=== PATIENT | female | born 1985 | race Caucasian/White ===

== ENCOUNTER → 2016-08-06 | Day surgery (SDC) | payer OTHER ==
[~2016-08-06] VITALS: Ht 172.7 cm; Wt 90.7 kg
[~2016-08-06] MED LIST: ACET50TA PO; ACETAMINOPHEN 650 MG SUPP As Ordered ONE; ACETAMINOPHEN 650 MG SUPP PR ONE; BUPIVACAINE HCL 0.25% 10 ML VIAL As Ordered ONE; BUPIVACAINE HCL 0.5% 10 ML VIAL As Ordered ONE; FISH1000 PO; GLYCOPYRROLATE INJ 0.2 MG/ML 2 ML VIAL As Ordered ONE; HYDROmorphone HCL 1 MG/ML SYRINGE (J1170) IV PRN; IBUP80TA PO; JOLETAB PO; LIDOCAINE 2% INJ 100 MG/5 ML SDV (FOR ANES.) As Ordered ONE; LR 1,000 ML IV SCH; LUNE1TAB5 PO; LYRI100C10 PO; MIDAZOLAM INJ 2 MG/2 ML VIAL (J2250) As Ordered ONE; NAPR500T2 PO; NEOSTIGMINE 1MG/ML 5 ML SYRINGE (J2710) As Ordered ONE; ONDANSETRON 4MG/2ML VIAL (J2405) As Ordered ONE; ONDANSETRON 4MG/2ML VIAL (J2405) IV PRN; PERCOCET 5MG/325MG TAB PO PRN; PROPOFOL 200 MG/20 ML VIAL As Ordered ONE; PROZ40CA PO; ROCURONIUM BROMIDE 50 MG/5 ML VIAL As Ordered ONE; VENL37TA PO; VITA100054 PO; dexameTHASONE 4 MG/ML 1ML VIAL (J1100) As Ordered ONE; ePHEDrine SULFATE 25 MG/5 ML(5MG/ML) SYRINGE As Ordered ONE; fentaNYL 100 MCG/2 ML INJECTION (J3010) As Ordered ONE
[2016-08-06 09:29] LABS: MEAN CORPUSCULAR HEMOGLOBIN 30.1 pg (27.0-33.0); MEAN CORPUSCULAR HGB CONC 33.7 g/dl (32.0-36.5); MEAN CORPUSCULAR VOLUME 89.3 fl (80.0-96.0); WHITE BLOOD COUNT 4.9 K/mm3 (4.0-10.0)
[2016-08-06 09:35] LABS: ANION GAP 7 MEQ/L (8-16); BLOOD UREA NITROGEN 12 MG/DL (7-18); CALCIUM LEVEL 8.6 MG/DL (8.5-10.1); CARBON DIOXIDE LEVEL 26 MEQ/L (21-32); CHLORIDE LEVEL 107 MEQ/L (98-107); CREATININE FOR GFR 1.02 MG/DL (0.55-1.02); GLOMERULAR FILTRATION RATE > 60.0 (>60); GLUCOSE, FASTING 87 MG/DL (70-105); HCG, SERUM QUANTITATIVE < 1.0 MIU/ML; POTASSIUM SERUM 4.1 MEQ/L (3.5-5.1); SODIUM LEVEL 140 MEQ/L (136-145)
--- NOTE | 2016-08-06 11:46 | REP ---
Clinical: Locate Filshie clip. Technique: Single portable intraoperative supine view of the abdomen. Findings: A single clip is identified in the left hemipelvis. Overlying surgical hardware noted. Impression: Intraoperative examination demonstrating single Filshie clip in the left hemipelvis. Signed by Marcelino Buckner MD 08/06/2016 11:37 A
[2016-08-06] MEDS: fentaNYL 100 MCG/2 ML INJECTION (J3010) IV PRN ×4 (12:05→12:20)
[2016-08-06 13:35] VITALS: BP 130/78
--- NOTE | 2016-08-10 11:47 | RO ---
DATE OF PROCEDURE: 08/06/2016 PREOPERATIVE DIAGNOSIS: Bilateral chronic pelvic pain, abnormal uterine bleeding. POSTOPERATIVE DIAGNOSIS: Abnormal uterine bleeding, chronic pelvic pain. OPERATION PROPOSED: Operative laparoscopy, bilateral salpingectomy, hysteroscopy, dilation and curettage. OPERATION PERFORMED: Operative laparoscopy, bilateral salpingectomy, removal of occult Filshie clip, hysteroscopy, dilation and curettage. SURGEON: Dr. Roland Thorpe TECHNICAL DOCUMENTATION SPECIALIST: Dr. Link ANESTHESIA: General plus local anesthetic for intraperitoneal procedures. ESTIMATED BLOOD LOSS: 20 mL This lady has had chronic pelvic pain since her tubal ligation and despite investigations, no cause was found. The patient also had abnormal uterine bleeding in which she had heavy periods using excess of 20 tampons and pad per period, requiring her to stay home. DESCRIPTION OF PROCEDURE: Under adequate anesthesia, prepped and draped in the lithotomy position, Jean catheter in the bladder draining clear urine, acetaminophen suppository 1300 mg per rectum. Time-out was performed. Weighted speculum in vagina, single-tooth tenaculum on the anterior lip of the cervix. She had some degree of cervical uterine descent, and she had some degree of cervical stenosis. We sounded the uterus to a depth of 6 cm, placed a uterine sound into the cavity. Then, reprepping and draping, subumbilical incision was made. Direct entry into the abdomen. No evidence of perforation, hemorrhage or bleeding. 3 liters of CO2 warmed were placed in the abdominal cavity. On examination, the upper abdomen was normal. Liver edge was smooth. Gallbladder was normal. Uterus was midline, retroverted, retroflexed. The right ovary appeared to be normal. Left ovary appeared to be normal. We noted that there was a Filshie clip on the left tube, but we could not demonstrate a Filshie clip on the right tube. A 5 mm port was placed on the right side and an 8 mm port was placed on the left side. We identified the structures as normal. The cul-de-sac appeared to be clear. We then went ahead and removed the left tube and Filshie clip with the Harmonic scalpel securing hemostasis, identifying the ureter. The tube and the clip were removed through the 8 mm port. Once that was done, we turned our attention to the right side and again identified the ovary being normal, could not find the clip. We did a salpingectomy on the right side, removing the tube, using the Harmonic scalpel and that was removed and sent off to pathology under separate cover. Having not been able to identify a clip on the right tube, we then filled the abdomen with normal saline and floated the organs in order to see if we could identify a tube attached to either omentum or some other structure. After 20 minutes of evaluating, we could not identify a tube anywhere. We then had a C-arm placed on the patient, took an x-ray and, in fact, found the occult Filshie clip hiding in a defect in the cul-de-sac on the left side under the arch of the uterosacral. Once we were able to identify where the location of the clip was, we then put in a grasper and easily pulled out the clip, which was still compressed and removed it through the 8 mm port. The defect seemed to be just lodged where the Filshie clip was, but there was no sequelae to that area. We then irrigated, left 250 mL of normal saline in the abdomen, deflated to 4 mm of pressure, removed the 5 mm port, removed the 8 mm port, removed the camera port. . We then approximated the incisional sites, Marcaine 0.25% 3 mL to each site and skin tapes were applied. We then went below, removed the dilator, dilated the cervix up to an appropriate level that we could actually get a hysteroscope in. Panoramic review revealed moderate amount of tissue throughout the cavity with some erratic and irregular spaces. Os on the right was normal. Os on the left was normal. We then took samples under direct vision and sent them off under separate cover identified and timed the lining of the endometrium. This lady's last menstrual period (LMP) was 07/22/2016. With that done, we had used a total of 150 mL of fluid in, 150 mL out, all instruments removed. The instrument and pad counts were correct, the Jean catheter was removed and the patient was sent to recovery in good condition.
== END | disposition home or self-care (01) ==
LOC: M SDC 08:29
PROVIDERS: ATTEND Obstetrics & Gynecology
DX: N93.9 Abnormal uterine and vaginal bleeding, unspecified (principal); R10.2 Pelvic and perineal pain; G47.9 Sleep disorder, unspecified; M54.9 Dorsalgia, unspecified; F41.9 Anxiety disorder, unspecified; F32.9 Major depressive disorder, single episode, unspecified; Z88.0 Allergy status to penicillin; Z79.899 Other long term (current) drug therapy; Z98.51 Tubal ligation status
CPT/HCPCS: 36415; 58558; 58661; 74000; 80048; 84702; 85027; 88302; 88305; J1100; J2250; J2405; J2710; J3010

== ENCOUNTER 2017-01-30 08:19 | Emergency (ER) | payer OTHER ==
[~2017-01-30 08:19] MED LIST changes: -ACETAMINOPHEN 650 MG SUPP As Ordered ONE; -ACETAMINOPHEN 650 MG SUPP PR ONE; -BUPIVACAINE HCL 0.25% 10 ML VIAL As Ordered ONE; -BUPIVACAINE HCL 0.5% 10 ML VIAL As Ordered ONE; -GLYCOPYRROLATE INJ 0.2 MG/ML 2 ML VIAL As Ordered ONE; -HYDROmorphone HCL 1 MG/ML SYRINGE (J1170) IV PRN; -LIDOCAINE 2% INJ 100 MG/5 ML SDV (FOR ANES.) As Ordered ONE; -LR 1,000 ML IV SCH; -LYRI100C10 PO; -MIDAZOLAM INJ 2 MG/2 ML VIAL (J2250) As Ordered ONE; -NAPR500T2 PO; +NAPR500T3 PO; -NEOSTIGMINE 1MG/ML 5 ML SYRINGE (J2710) As Ordered ONE; -ONDANSETRON 4MG/2ML VIAL (J2405) As Ordered ONE; -ONDANSETRON 4MG/2ML VIAL (J2405) IV PRN; -PERCOCET 5MG/325MG TAB PO PRN; +PREG100CA PO; -PROPOFOL 200 MG/20 ML VIAL As Ordered ONE; -ROCURONIUM BROMIDE 50 MG/5 ML VIAL As Ordered ONE; -dexameTHASONE 4 MG/ML 1ML VIAL (J1100) As Ordered ONE; -ePHEDrine SULFATE 25 MG/5 ML(5MG/ML) SYRINGE As Ordered ONE; -fentaNYL 100 MCG/2 ML INJECTION (J3010) As Ordered ONE
[2017-01-30] MEDS ORDERED: FLUO20CA19 PO (08:42)
[2017-01-30] MEDS ORDERED: methylPREDNISolone INJ 125 MG/2 ML VIAL (J2930) IM ONE (09:00)
[2017-01-30] MEDS ORDERED: IPRATROPIUM 0.5MG/ALBUTEROL 2.5MG INH SOL UD 3ML (DUONEB)(J7620) NEB ONE (09:00)
--- NOTE | 2017-01-30 09:46 | REP ---
CHEST PA AND LATERAL: 01/30/2017 CLINICAL HISTORY: Wheezing and cough. FINDINGS: No prior studies. The lungs are well inflated. Some peribronchial thickening and streaky densities infrahilar regions suggesting some reactive airway disease or bronchitis. No dense consolidation pleural effusion or mass. No pulmonary nodules, mediastinal or hilar mass, cardiomegaly or edema. The aorta and airway intact. Bony thorax shows no focal lesion. There is no free air under the diaphragm. IMPRESSION: 1. Some perihilar changes of reactive airway disease or bronchitis. No dense consolidation, effusion, cardiomegaly or edema. Signed by Spenser Coughlin MD 01/30/2017 03:43 P
[2017-01-30 09:54] VITALS: BP 130/77
[2017-01-30] MEDS ORDERED: SING10TA32 PO (10:01)
[2017-01-30] MEDS ORDERED: PRED20TA PO (10:01)
[2017-01-30] MEDS ORDERED: ALBU17IN INH (10:01)
== END 2017-01-30 10:06 | disposition home or self-care (01) ==
LOC: M ED 08:19
DX: J45.901 Unspecified asthma with (acute) exacerbation (principal); J06.9 Acute upper respiratory infection, unspecified
CPT/HCPCS: 71020; 94640; 96372; 99282; J2930

== ENCOUNTER 2017-07-06 11:39 | Emergency (ER) | payer OTHER | END 2017-07-06 12:40 | disposition home or self-care (01) | LOC: M ED 11:39 | DX: J06.9 Acute upper respiratory infection, unspecified (principal); J45.909 Unspecified asthma, uncomplicated; F33.9 Major depressive disorder, recurrent, unspecified; Z79.899 Other long term (current) drug therapy; Z98.890 Other specified postprocedural states; Z88.0 Allergy status to penicillin | CPT/HCPCS: 99282 ==

== ENCOUNTER 2017-12-02 11:10 | Emergency (ER) | payer OTHER ==
[2017-12-02 13:02] LABS: AMORPHOUS SEDIMENT RFX SMALL (NEGATIVE); KETONE, URINE AUTO RFX NEGATIVE (NEGATIVE); LEUKOCYTE ESTERASE UR AUTO RFX NEGATIVE (NEGATIVE); NITRITE, URINE AUTO RFX NEGATIVE (NEGATIVE); RBC, URINE AUTO RFX 1 /HPF (0-3); SPECIFIC GRAVITY UR AUTO RFX 1.014 (1.002-1.035); SQUAM EPITHELIAL CELL UR AURFX 1 /HPF (0-6); WBC, URINE AUTO RFX 1 /HPF (0-3)
[2017-12-02 13:31] LABS: BASO # 0.1 10^3/uL (0.0-0.2); BASO % 0.8 % (0.0-1.0); EOS % 0.2 % (0.0-3.0); HEMATOCRIT 43.6 % (36.0-47.0); HEMOGLOBIN 14.6 g/dl (12.0-15.5); IMMATURE GRANULOCYTE % 0.3 % (0-3.0); LYMPH # 1.9 10^3/uL (1.5-4.5); LYMPH % 30.5 % (24.0-44.0); MEAN CORPUSCULAR HGB CONC 33.5 g/dl (32.0-36.5); MEAN CORPUSCULAR VOLUME 89.5 fl (80.0-96.0); MONO # 0.6 10^3/uL (0.0-0.8); MONO % 9.2 % (0.0-5.0); NEUTROPHILS # 3.7 10^3/uL (1.8-7.7); PLATELET COUNT, AUTOMATED 236 10^3/uL (150-450); RED BLOOD COUNT 4.87 10^6/uL (4.00-5.40); RED CELL DISTRIBUTION WIDTH 12.7 % (11.5-14.5); WHITE BLOOD COUNT 6.3 10^3/uL (4.0-10.0)
[2017-12-02 13:56] LABS: ANION GAP 7 MEQ/L (8-16); BLOOD UREA NITROGEN 10 MG/DL (7-18); CALCIUM LEVEL 8.7 MG/DL (8.5-10.1); CARBON DIOXIDE LEVEL 23 MEQ/L (21-32); CHLORIDE LEVEL 114 MEQ/L (98-107); CREATININE FOR GFR 1.11 MG/DL (0.55-1.30); GLOMERULAR FILTRATION RATE > 60.0 (>60); GLUCOSE, FASTING 94 MG/DL (70-100); MAGNESIUM LEVEL 2.1 MG/DL (1.8-2.4); POTASSIUM SERUM 4.1 MEQ/L (3.5-5.1); SODIUM LEVEL 144 MEQ/L (136-145)
== END 2017-12-02 14:38 | disposition home or self-care (01) ==
LOC: M ED 11:10
DX: R20.9 Unspecified disturbances of skin sensation (principal); R53.1 Weakness; J45.909 Unspecified asthma, uncomplicated; M79.7 Fibromyalgia; F50.81 Binge eating disorder; F17.200 Nicotine dependence, unspecified, uncomplicated; Z88.0 Allergy status to penicillin; Z79.899 Other long term (current) drug therapy
CPT/HCPCS: 70450

== ENCOUNTER → 2017-12-17 | Outpatient (REF) | payer OTHER ==
[2017-12-17 18:42] LABS: APPEARANCE, URINE HAZY (CLEAR); BACTERIA, URINE AUTO 1+ (NEGATIVE); BILIRUBIN, URINE AUTO NEGATIVE (NEGATIVE); BLOOD, URINE BLOOD NEGATIVE (NEGATIVE); CALCIUM OXALATE CRYSTALS MODERATE; COLOR, URINE YELLOW (YELLOW); GLUCOSE, URINE (UA) AUTO NEGATIVE (NEGATIVE); KETONE, URINE AUTO TRACE mg/dL (NEGATIVE); LEUKOCYTE ESTERASE, URINE AUTO 1+ (NEGATIVE); MUCUS, URINE SMALL (NEGATIVE); NITRITE, URINE AUTO NEGATIVE (NEGATIVE); PROTEIN, URINE AUTO NEGATIVE (NEGATIVE); RBC, URINE AUTO 1 /HPF (0-3); SQUAMOUS EPITHELIAL CELL UR AU 1 /HPF (0-6); WBC, URINE AUTO 2 /HPF (0-3)
== END ==
LOC: M SMT 17:07
DX: R32 Unspecified urinary incontinence (principal)

== ENCOUNTER 2017-12-29 15:52 | Emergency (ER) | payer OTHER | END 2017-12-29 17:00 | disposition home or self-care (01) | LOC: M ED 15:52 | DX: G43.809 Other migraine, not intractable, without status migrainosus (principal); M79.7 Fibromyalgia; N32.81 Overactive bladder; F50.81 Binge eating disorder; J45.909 Unspecified asthma, uncomplicated; M54.9 Dorsalgia, unspecified; F41.9 Anxiety disorder, unspecified; F32.9 Major depressive disorder, single episode, unspecified; Z72.0 Tobacco use; Z79.899 Other long term (current) drug therapy; Z88.0 Allergy status to penicillin | CPT/HCPCS: 99282 ==

== ENCOUNTER → 2018-05-25 | Outpatient (CLI) | payer OTHER ==
[~2018-05-25] MED LIST changes: +ALBU17IN INH; +ALIG4CAP PO; +CETI10CH PO; +DEPLCAP PO; +FLUO20CA19 PO; +LAMO100T; +NAPR-885 PO; -NAPR500T3 PO; +OSEL75CA PO; +OXYB5TAB10 PO; +PRED20TA PO; +SING10TA32 PO; +TOPI25TA10; +VENL75CA47; +ZOFR4TAB14 PO
--- NOTE | 2018-05-25 18:13 | REP ---
MAXILLOFACIAL CT WITHOUT CONTRAST: HISTORY: Pansinusitis. Mucosal thickening is present in the maxillary, right ethmoid and right frontal sinuses. There is complete opacification of the right maxillary and frontal sinuses. Minimal mucosal thickening is present in the right ethmoid and left maxillary sinuses. The remaining sinuses are clear. Mucosal thickening involves the right ostiomeatal unit. The left ostiomeatal unit is patent. The middle and inferior nasal turbinates are partially paradoxical. There is minimal deviation of the nasal septum to the right superiorly and to the left inferiorly. A spur is present arising from the left side of the nasal septum. The spur abuts the left inferior nasal turbinate. The cribriform plate, medial davison of the orbits and optic canals are intact. The carotid canals form a segment of the posterolateral davison of the sphenoid sinus. IMPRESSION: Sinus mucosal thickening as described above. Electronically Signed by David Major MD 05/25/2018 06:49 P
== END ==
LOC: M RAD 17:22
PROVIDERS: ATTEND Otolaryngology
DX: J34.89 Other specified disorders of nose and nasal sinuses (principal)

== ENCOUNTER → 2021-05-16 | Outpatient (REF) ==
[~2021-05-16] MED LIST changes: -ACET50TA PO; -FLUO20CA19 PO; +FLUO20CA22 PO; -LAMO100T; +LAMO100T3; +MAPA500T17 PO
[2021-05-16 08:12] LABS: RSV AMPLIFICATION NEGATIVE (NEGATIVE)
== END ==
LOC: M EMP 06:54
PROVIDERS: ATTEND Family Medicine
DX: Z20.822 Contact with and (suspected) exposure to COVID-19 (principal)

== ENCOUNTER → 2021-06-10 | Outpatient (REF) | LOC: M LABSMTC 10:45 | PROVIDERS: ATTEND Pediatrics | DX: Z11.52 Encounter for screening for COVID-19 (principal); Z20.822 Contact with and (suspected) exposure to COVID-19 ==

== ENCOUNTER 2021-06-13 09:34 | Emergency (ER) | payer MEDICAID, OTHER ==
[2021-06-13] MEDS ORDERED: QC A650T3 PO (09:42)
[2021-06-13] MEDS ORDERED: KETOROLAC 60MG 2ML VIAL IM ONE (14:15)
[2021-06-13] MEDS ORDERED: ALBUTEROL 90 MCG/ACT 8GM HFA INHALER INH ONE (14:15)
[2021-06-13] MEDS ORDERED: ONDANSETRON 4 MG ORAL DISINTEGRATING TAB PO ONE (14:15)
[2021-06-13] MEDS ORDERED: ONDA4TAB6 PO (14:18)
[2021-06-13] MEDS ORDERED: IBUP80TA PO (14:18)
[2021-06-13] MEDS ORDERED: VENTAER INH (14:18)
[2021-06-13 15:18] VITALS: BP 120/84
== END 2021-06-13 15:19 | disposition home or self-care (01) ==
LOC: M ED 09:34
DX: J45.901 Unspecified asthma with (acute) exacerbation (principal); G43.909 Migraine, unspecified, not intractable, without status migrainosus; U07.1 COVID-19; F33.9 Major depressive disorder, recurrent, unspecified; F41.9 Anxiety disorder, unspecified; M79.7 Fibromyalgia; Z88.0 Allergy status to penicillin; F17.210 Nicotine dependence, cigarettes, uncomplicated
CPT/HCPCS: 71045; 94640; 96372; 99283; J1885; Q0162

== ENCOUNTER 2021-10-23 14:04 | Inpatient (IN) | payer MEDICAID, OTHER ==
[~2021-10-23] VITALS: Ht 175.3 cm; Wt 95.2 kg
[~2021-10-23 14:04] MED LIST changes: +ONDA4TAB6 PO; +QC A650T3 PO; +VENTAER INH
[2021-10-23 15:07] LABS: HEMATOCRIT 43.1 % (36.0-47.0); HEMOGLOBIN 14.6 g/dl (12.0-15.5); MEAN CORPUSCULAR HGB CONC 33.9 g/dl (32.0-36.5); MEAN CORPUSCULAR VOLUME 91.5 fl (80.0-96.0); PLATELET COUNT, AUTOMATED 243 10^3/uL (150-450); RED BLOOD COUNT 4.71 10^6/uL (4.00-5.40); WHITE BLOOD COUNT 6.3 10^3/uL (4.0-10.0)
[2021-10-23 15:19] LABS: AMPHETAMINES LEVEL URINE NEGATIVE (NEGATIVE); BARBITURATES URINE NEGATIVE (NEGATIVE); BENZODIAZEPINES URINE NEGATIVE (NEGATIVE); CANNABINOIDS URINE POSITIVE (NEGATIVE); COCAINE METABOLITE URINE NEGATIVE (NEGATIVE); METHADONE URINE NEGATIVE (NEGATIVE); OPIATES URINE NEGATIVE (NEGATIVE); PHENCYCLIDINE URINE NEGATIVE (NEGATIVE)
[2021-10-23 15:27] LABS: ACETAMINOPHEN LEVEL < 2.0 UG/ML (10.0-30.0); ALT/SGPT 23 U/L (12-78); BILIRUBIN,DIRECT 0.2 MG/DL (0.0-0.2); BILIRUBIN,TOTAL 0.8 MG/DL (0.2-1.0); BLOOD UREA NITROGEN 12 MG/DL (7-18); CALCIUM LEVEL 9.4 MG/DL (8.5-10.1); CARBON DIOXIDE LEVEL 27 MEQ/L (21-32); CHLORIDE LEVEL 110 MEQ/L (98-107); CREATININE FOR GFR 1.12 MG/DL (0.55-1.30); ETHYL ALCOHOL (ETHANOL) < 0.003 % (0.000-0.010); GLOMERULAR FILTRATION RATE 59.3 (>60); GLUCOSE, FASTING 86 MG/DL (70-100); POTASSIUM SERUM 3.7 MEQ/L (3.5-5.1); SALICYLATE LEVEL < 1.7 MG/DL (5.0-30.0); SODIUM LEVEL 143 MEQ/L (136-145); TOTAL PROTEIN 7.5 GM/DL (6.4-8.2)
[2021-10-23 15:46] LABS: RSV AMPLIFICATION NEGATIVE (NEGATIVE)
[2021-10-23 16:37] LABS: HCG, SERUM QUALITATIVE NEGATIVE (NEGATIVE)
[2021-10-23] MEDS ORDERED: BOOSTRIX/ADACEL VACCINE (DIPHTH/PERTUSS/ACELL/TETANUS) 0.5ML SYR IM ONE (16:45)
[2021-10-24] MEDS ORDERED: ALBU8.5H INH (00:31)
[2021-10-24] MEDS ORDERED: IBUP1TAB7 PO (00:31)
[2021-10-24] MEDS ORDERED: HOME MED LIST COMPLETE! XX SCH (00:35)
[2021-10-24] MEDS: NICOTINE 21MG/24HR 1 EA TRANSDERMAL TD SCH (09:00)
[2021-10-24] MEDS ORDERED: diphenhydrAMINE 25MG CAP PO PRN (13:45)
[2021-10-24] MEDS ORDERED: ACETAMINOPHEN TAB 650MG DOSE (2X325MG) PO PRN (13:45)
[2021-10-24] MEDS ORDERED: IBUPROFEN 800 MG TAB PO PRN (13:45)
[2021-10-24] MEDS ORDERED: MOM 30ML SUSPENSION UDC PO PRN (13:45)
[2021-10-24] MEDS ORDERED: ALBUTEROL 90 MCG/ACT 8GM HFA INHALER INH PRN (13:45)
[2021-10-24] MEDS ORDERED: MAALOX 30 ML SUSP *UDC PO PRN (13:45)
[2021-10-24 20:12] VITALS: BP 134/74
[2021-10-25 06:46] VITALS: BP 104/61
[2021-10-25] MEDS: NICOTINE 21MG/24HR 1 EA TRANSDERMAL TD SCH (09:43)
[2021-10-25] MEDS ORDERED: NICOTINE 7 MG/24 HR TRANSDERMAL TD PRN (11:20)
[2021-10-25] MEDS: VENLAFAXINE 37.5 MG TAB PO SCH (12:23)
[2021-10-25] MEDS: hydrOXYzine 50 MG TAB PO PRN (12:23)
[2021-10-25] MEDS ORDERED: SUMAtriptan SUCCINATE 25 MG TAB PO PRN (15:55)
[2021-10-25] MEDS ORDERED: SUMAtriptan SUCCINATE 25 MG TAB PO ONE (15:55)
[2021-10-25 16:35] VITALS: BP 108/56
[2021-10-25] MEDS: NAPROXEN 250 MG TAB PO SCH (18:07)
[2021-10-25] MEDS: TOPIRAMATE (TopAMAX) 25 MG TAB PO SCH (21:46)
[2021-10-26 06:41] VITALS: BP 109/62
[2021-10-26] MEDS: NAPROXEN 250 MG TAB PO SCH ×2 (08:42→17:43)
[2021-10-26] MEDS: TOPIRAMATE (TopAMAX) 25 MG TAB PO SCH ×2 (08:44→20:46)
[2021-10-26] MEDS: VENLAFAXINE 37.5 MG TAB PO SCH (08:45)
[2021-10-26] MEDS: hydrOXYzine 50 MG TAB PO PRN (12:47)
[2021-10-26 16:20] VITALS: BP 134/69
[2021-10-26] MEDS: traZODone 50 MG TAB PO PRN (20:46)
[2021-10-27 06:59] VITALS: BP 118/69
[2021-10-27] MEDS: TOPIRAMATE (TopAMAX) 25 MG TAB PO SCH ×2 (07:36→21:10)
[2021-10-27] MEDS: VENLAFAXINE 37.5 MG TAB PO SCH (07:37)
[2021-10-27] MEDS: NAPROXEN 250 MG TAB PO SCH ×2 (07:37→17:28)
[2021-10-27 16:26] VITALS: BP 111/65
[2021-10-27] MEDS: traZODone 50 MG TAB PO PRN (21:10)
[2021-10-28 06:30] VITALS: BP 121/74
[2021-10-28] MEDS: NAPROXEN 250 MG TAB PO SCH (08:43)
[2021-10-28] MEDS: hydrOXYzine 50 MG TAB PO PRN (08:43)
[2021-10-28] MEDS: TOPIRAMATE (TopAMAX) 25 MG TAB PO SCH (08:43)
[2021-10-28] MEDS: VENLAFAXINE 37.5 MG TAB PO SCH (08:43)
[2021-10-28] MEDS ORDERED: HYDR50TA70 PO (12:45)
[2021-10-28] MEDS ORDERED: VENL37TA PO (12:45)
[2021-10-28] MEDS ORDERED: NICO7PA TD (12:45)
[2021-10-28] MEDS ORDERED: TRAZ-252 PO (12:45)
[2021-10-28] MEDS ORDERED: SUMA25TA3 PO (12:45)
[2021-10-28] MEDS ORDERED: NAPR-849 PO (12:45)
[2021-10-28] MEDS ORDERED: TOPA1TAB PO (12:45)
== END 2021-10-28 15:12 | disposition home or self-care (01) | DRG 754 ==
LOC: M ED 14:04 → M ED INP 10-24 13:44 → M PSY 10-24 20:08
PROVIDERS: ADMIT Student in an Organized Health Care Education/Training Program; ATTEND Psychiatry & Neurology Psychiatry
DX: F32.A Depression, unspecified (principal); F41.9 Anxiety disorder, unspecified; F43.10 Post-traumatic stress disorder, unspecified; F60.3 Borderline personality disorder; Z91.52 Personal history of nonsuicidal self-harm; Z63.0 Problems in relationship with spouse or partner; J45.909 Unspecified asthma, uncomplicated; G43.909 Migraine, unspecified, not intractable, without status migrainosus; F17.200 Nicotine dependence, unspecified, uncomplicated; Z91.51 Personal history of suicidal behavior; Z88.0 Allergy status to penicillin; Z79.899 Other long term (current) drug therapy; R32 Unspecified urinary incontinence; M79.7 Fibromyalgia

== ENCOUNTER → 2021-12-31 | Outpatient (REF) ==
[~2021-12-31] MED LIST changes: +ALBU8.5H INH; +HYDR50TA70 PO; +IBUP1TAB7 PO; +NAPR-849 PO; +NICO7PA TD; +SUMA25TA3 PO; +TOPA1TAB PO; +TRAZ-252 PO
== END ==
LOC: M LABSMTC 09:41
PROVIDERS: ATTEND Family Medicine
DX: Z20.822 Contact with and (suspected) exposure to COVID-19 (principal)

== ENCOUNTER → 2022-01-27 | Outpatient (REF) | LOC: M LABSMTC 11:31 | PROVIDERS: ATTEND Family Medicine | DX: Z20.822 Contact with and (suspected) exposure to COVID-19 (principal) ==

== ENCOUNTER → 2022-01-28 | Outpatient (REF) ==
[2022-01-28 10:19] LABS: RSV AMPLIFICATION NEGATIVE (NEGATIVE)
== END ==
LOC: M EMP 09:26
PROVIDERS: ATTEND Family Medicine
DX: Z11.52 Encounter for screening for COVID-19 (principal)

== ENCOUNTER → 2022-03-07 | Outpatient (REF) | payer MEDICAID ==
[2022-03-07 13:59] LABS: CHOLESTEROL RISK RATIO 2.578 (<5)
== END ==
LOC: M LAB REF 12:15
PROVIDERS: ATTEND Nurse Practitioner Family
DX: R79.89 Other specified abnormal findings of blood chemistry (principal)

== ENCOUNTER → 2022-05-23 | Outpatient (CLI) | payer MEDICAID ==
[~2022-05-23] MED LIST changes: +FREM225A SC; +TOPI100T9 PO; +VENL150C43 PO
== END ==
LOC: M EKG 11:11
PROVIDERS: ATTEND Surgery
DX: K42.9 Umbilical hernia without obstruction or gangrene (principal)

== ENCOUNTER → 2022-05-29 | Outpatient (CLI) | payer MEDICAID | LOC: M LABSMTC 09:37 | PROVIDERS: ATTEND Anesthesiology | DX: Z01.812 Encounter for preprocedural laboratory examination (principal); Z11.52 Encounter for screening for COVID-19 ==

== ENCOUNTER 2022-06-03 09:22 | Day surgery (SDC) | payer MEDICAID ==
[~2022-06-03] VITALS: Ht 175.3 cm; Wt 91.5 kg
[~2022-06-03 09:22] MED LIST changes: +CelecoXIB 400 MG CAP PO ONE
[2022-06-03] MEDS ORDERED: LR 1,000 ML IV SCH ×2 (12:25→20:45)
[2022-06-03] MEDS ORDERED: propofoL 200 MG/20 ML VIAL As Ordered ONE (15:51)
[2022-06-03] MEDS ORDERED: MIDAZOLAM INJ 2MG/2ML VIAL As Ordered ONE ×2 (15:51→21:26)
[2022-06-03] MEDS ORDERED: fentaNYL 100 MCG/2 ML INJECTION As Ordered ONE ×2 (15:51→18:34)
[2022-06-03] MEDS ORDERED: SUGAMMADEX SODIUM 500 MG/5 ML VIAL (BRIDION) As Ordered ONE (15:52)
[2022-06-03] MEDS ORDERED: ONDANSETRON 4MG 2ML VIAL As Ordered ONE (15:52)
[2022-06-03] MEDS ORDERED: LIDOCAINE 2% 100MG/5ML SDV (FOR ANES.) As Ordered ONE (15:52)
[2022-06-03] MEDS ORDERED: ROCURONIUM BROMIDE 50MG/5ML VIAL As Ordered ONE ×2 (15:52→19:02)
[2022-06-03] MEDS ORDERED: LIDOCAINE 1% SDV 30ML VIAL As Ordered ONE (17:47)
[2022-06-03] MEDS ORDERED: BUPIVACAINE HCL 0.25% 30ML VIAL As Ordered ONE (17:48)
[2022-06-03] MEDS ORDERED: BUPIVACAINE LIPOSOME/PF 1.3% 20ML VIAL (13.3MG/ML)(EXPAREL) As Ordered ONE (17:48)
[2022-06-03] MEDS ORDERED: LevoFLOXacin 500MG/100ML IV BAG As Ordered ONE (17:51)
[2022-06-03] MEDS ORDERED: ACETAMINOPHEN 1000MG 100ML IV BAG As Ordered ONE (18:20)
[2022-06-03] MEDS ORDERED: METOCLOPRAMIDE INJ 10MG/2ML VIAL As Ordered ONE (18:36)
[2022-06-03] MEDS ORDERED: SEVOFLURANE INHAL SOLN 250 ML BTL As Ordered ONE (18:48)
[2022-06-03] MEDS ORDERED: HYDROmorphone HCL 2MG/ML 1ML VIAL As Ordered ONE (19:05)
[2022-06-03] MEDS ORDERED: HYDROMORPHONE HCL 0.5 MG/ 0.5 ML SYRINGE IV PRN (20:45)
[2022-06-03] MEDS ORDERED: oxyCODONE 5MG TAB PO PRN (20:45)
[2022-06-03] MEDS ORDERED: fentaNYL 100 MCG/2 ML INJECTION IV PRN (20:45)
[2022-06-03] MEDS ORDERED: ONDANSETRON 4MG 2ML VIAL IV PRN (20:45)
[2022-06-03] MEDS ORDERED: ePHEDrine SULFATE 25 MG/5 ML(5MG/ML) SYRINGE As Ordered ONE (21:42)
[2022-06-03 22:25] VITALS: BP 122/68
== END 2022-06-03 22:30 | disposition home or self-care (01) ==
LOC: M SDC 09:22
PROVIDERS: ATTEND Surgery
DX: K42.0 Umbilical hernia with obstruction, without gangrene (principal); Z79.899 Other long term (current) drug therapy; J45.909 Unspecified asthma, uncomplicated; Z88.0 Allergy status to penicillin; Z79.51 Long term (current) use of inhaled steroids; F41.9 Anxiety disorder, unspecified; F32.A Depression, unspecified; G43.909 Migraine, unspecified, not intractable, without status migrainosus; M79.7 Fibromyalgia; F17.210 Nicotine dependence, cigarettes, uncomplicated; F12.10 Cannabis abuse, uncomplicated
CPT/HCPCS: 49592; C1781; C9290; J1100; J1956; J2405; S2900

== ENCOUNTER → 2022-08-05 | Outpatient (REF) | payer MEDICAID ==
[~2022-08-05] MED LIST changes: -CelecoXIB 400 MG CAP PO ONE; +MONT-5 PO; -SING10TA32 PO
== END ==
LOC: M LAB REF 12:34
PROVIDERS: ATTEND Physician Assistant
DX: B34.9 Viral infection, unspecified (principal)